=== PATIENT | male | born 1990 | race Caucasian/White ===

== ENCOUNTER 2021-09-15 14:36 | Emergency (ER) | payer BC ==
[2021-09-15] MEDS ORDERED: Sodium Chloride 0.9% 1,000 ML IV ONE (16:47)
[2021-09-15] MEDS ORDERED: Sodium Chloride 0.9% 2.5 ML Syringe FLUSH PRN (16:47)
[2021-09-15] MEDS ORDERED: Ondansetron 4 MG/2 ML SDV IVPUSH ONE (16:47)
[2021-09-15] MEDS ORDERED: Sodium Chloride 0.9% 10 ML Syringe FLUSH PRN (16:47)
[2021-09-15 18:02] LABS: BLOOD UREA NITROGEN,BUN 5 mg/dL (7.0-18.0); CARBON DIOXIDE,CO2 27.9 mmol/L (21.0-32.0); CHLORIDE,CL 102 mmol/L (98-107); GLUCOSE RANDOM 84 mg/dL (74-106); LIPASE 48 U/L (73-393); POTASSIUM,K 3.5 mmol/L (3.5-5.1); SODIUM,NA 139 mmol/L (136-148)
[2021-09-15] MEDS ORDERED: Iopamidol 755 MG/ML 500 ML Multipack Bottle IVPUSH STA (18:40)
== END 2021-09-15 20:40 | disposition home or self-care (01) ==
LOC: MW.ED 14:36
DX: L03.316 Cellulitis of umbilicus (principal); Z88.0 Allergy status to penicillin
CPT/HCPCS: 36415; 74177; 80053; 80305; 81003; 83690; 85025; 87070; 87205; 96374; 99284; J2405; J7030; Q9967

== ENCOUNTER 2022-01-17 07:11 | Emergency (ER) | payer OTHER, BC | END 2022-01-17 07:47 | disposition home or self-care (01) | LOC: MW.ED 07:11 | DX: S89.92XA Unspecified injury of left lower leg, initial encounter (principal); F17.210 Nicotine dependence, cigarettes, uncomplicated; Z88.0 Allergy status to penicillin; Z79.899 Other long term (current) drug therapy; Z90.49 Acquired absence of other specified parts of digestive tract; V86.56XA Driver of dirt bike or motor/cross bike injured in nontraffic accident, initial encounter; Y92.410 Unspecified street and highway as the place of occurrence of the external cause | CPT/HCPCS: 99283 ==

== ENCOUNTER 2025-07-30 11:01 | Day surgery (SDC) | payer MEDICAID ==
[2025-07-30] MEDS: Lactated Ringers 1,000 ML IV SCH (11:35)
[2025-07-30] MEDS ORDERED: fentaNYL 100 MCG/2 ML SDV ONE (12:10)
[2025-07-30] MEDS ORDERED: Ondansetron 4 MG/2 ML SDV ONE (12:10)
[2025-07-30] MEDS ORDERED: Ketamine HCL/NACL, ISO-OSM 50 MG/5 ML Syringe ONE (12:10)
[2025-07-30] MEDS ORDERED: Propofol 200 MG/20 ML SDV ONE (12:13)
[2025-07-30] MEDS ORDERED: Lactated Ringers 1,000 ML IV SCH (13:00)
== END 2025-07-30 13:50 | disposition home or self-care (01) ==
LOC: MW.SDS 11:01
PROVIDERS: ATTEND Surgery
DX: K29.50 Unspecified chronic gastritis without bleeding (principal); B96.81 Helicobacter pylori [H. pylori] as the cause of diseases classified elsewhere; Z88.0 Allergy status to penicillin; F17.210 Nicotine dependence, cigarettes, uncomplicated
CPT/HCPCS: 43239; J2003; J2405; J2704; J3010; J7120; 00731; J3490